=== PATIENT | male | born 2000 | race Caucasian/White ===

== ENCOUNTER 2024-11-24 19:27 | Emergency (ER) | payer OTHER ==
[~2024-11-24] VITALS: Ht 170.2 cm; Wt 74.8 kg
[2024-11-24 20:10] VITALS: BP 133/78; TEMP 98.1; O2SAT 98
[2024-11-24] MEDS ORDERED: IBUP-1490 PO (20:28)
[2024-11-24] MEDS ORDERED: IBUPROFEN 600 MG TABLET ONE (20:29)
[2024-11-24] MEDS: IBUPROFEN 600 MG TABLET PO ONE (20:34)
== END 2024-11-24 20:55 | disposition home or self-care (01) ==
LOC: ER 19:38
DX: M54.2 Cervicalgia (principal); M54.9 Dorsalgia, unspecified; M25.511 Pain in right shoulder; V49.09XA Driver injured in collision with other motor vehicles in nontraffic accident, initial encounter; Y93.89 Activity, other specified; Y92.415 Exit ramp or entrance ramp of street or highway as the place of occurrence of the external cause; Y99.8 Other external cause status